=== PATIENT | male | born 1985 | race Hispanic/Latino ===

== ENCOUNTER → 2018-12-15 | Outpatient (CLI) | payer OTHER ==
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
== END ==
LOC: M RAD 08:48
PROVIDERS: ATTEND Surgery
DX: R22.42 Localized swelling, mass and lump, left lower limb (principal)

== ENCOUNTER → 2018-12-19 | Outpatient (REF) | payer OTHER ==
[2018-12-19 14:23] LABS: BLOOD UREA NITROGEN 16 MG/DL (7-18); CREATININE FOR GFR 1.19 MG/DL (0.70-1.30); GLOMERULAR FILTRATION RATE > 60.0 (>60)
== END ==
LOC: M LAB REF 11:06
PROVIDERS: ATTEND Surgery
DX: C49.9 Malignant neoplasm of connective and soft tissue, unspecified (principal)

== ENCOUNTER → 2020-07-26 | Outpatient (CLI) | payer OTHER ==
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
== END ==
LOC: M RAD 08:47
PROVIDERS: ATTEND Surgery
DX: M79.605 Pain in left leg (principal)